=== PATIENT | male | born 1950 | race Hispanic/Latino ===

== ENCOUNTER 2023-08-31 06:13 | Day surgery (SDC) | payer OTHER ==
[2023-08-29 14:09] LABS: BASOPHILS # (AUTO) 0.09 K/uL (0.00-0.20); EOSINOPHILS # (AUTO) 1.09 K/uL (0.00-0.70); HEMATOCRIT 39.4 % (42-54); IMMATURE GRANULOCYTE ABSOLUTE 0.03 K/uL (0-1); LYMPHOCYTES # (AUTO) 1.7 K/uL (1.0-4.8); LYMPHOCYTES % (AUTO) 18.5 % (21.0-51.0); MEAN CORPUSCULAR HEMOGLOBIN 27.6 pg (27.0-33.0); MEAN CORPUSCULAR HGB CONC 32.7 g/dL (32.0-36.0); MEAN CORPUSCULAR VOLUME 84.2 fL (79-99); MONOCYTES # (AUTO) 0.8 K/uL (0.1-1.0); MONOCYTES % (AUTO) 8.6 % (3.0-13.0); NEUTROPHILS # (AUTO) 5.4 K/uL (1.8-7.7); NEUTROPHILS % (AUTO) 59.6 % (40.0-77.0); PLATELET COUNT (AUTO) 263 K/uL (130-400); RED BLOOD CELL COUNT(AUTO) 4.68 MIL/uL (4.50-6.20); RED CELL DISTRIBUTION WIDTH 13.2 % (11.0-15.5); WHITE BLOOD COUNT (AUTO) 9.1 K/uL (4.8-10.8)
[2023-08-29 14:19] VITALS: BP 98/61; PULSE 95; RESP 18
[2023-08-29 14:21] LABS: INR 0.97 (0.85-1.15); PROTHROMBIN TIME 11.5 SEC (9.6-11.6)
[2023-08-29 14:22] LABS: CREATININE 1.7 mg/dL (0.5-1.3); PARTIAL THROMBOPLASTIN TIME 31.3 SEC (26.3-35.5); POTASSIUM 4.6 mmol/L (3.5-5.1)
[2023-08-29 14:31] LABS: B-TYPE NATRIURETIC PEPTIDE 217 pg/mL (0-100)
[2023-08-31] VITALS (9 sets, daily range): BP systolic 97–135; BP diastolic 42–83; PULSE 57–74; RESP 16–18
[~2023-08-31] VITALS: Ht 165.1 cm; Wt 64.3 kg
[~2023-08-31 06:13] MED LIST: AMIO200T68 PO; APIX5TAB PO; ATOR40TA71 PO; CLOP75TA32 PO; METO25TA6 PO
[2023-08-31] MEDS: 0.9%NACL 1000ML 1,000 ML IV ONE (07:30)
[2023-08-31] MEDS ORDERED: LIDOCAINE HCL 2% VISCOUS 15 ML UDCUP ONE (08:22)
[2023-08-31] MEDS ORDERED: PROPOFOL 10 MG/ML 20ML VIAL IV ONE (09:12)
== END 2023-08-31 10:55 | disposition home or self-care (01) ==
LOC: DAH 06:13
PROVIDERS: ATTEND Internal Medicine Interventional Cardiology
DX: I48.11 Longstanding persistent atrial fibrillation (principal); I34.0 Nonrheumatic mitral (valve) insufficiency; I45.10 Unspecified right bundle-branch block; G60.8 Other hereditary and idiopathic neuropathies; I10 Essential (primary) hypertension; I25.2 Old myocardial infarction; R00.0 Tachycardia, unspecified; I65.23 Occlusion and stenosis of bilateral carotid arteries; I73.9 Peripheral vascular disease, unspecified; E66.3 Overweight; Z79.899 Other long term (current) drug therapy; Z98.890 Other specified postprocedural states; Z68.25 Body mass index [BMI] 25.0-25.9, adult
CPT/HCPCS: 71045; 80048; 83880; 85025; 85610; 85730; 36415; 93005 ×2; 92960; 93312; 93325; J7030; J2704; A4620; A4215; A4657; A4222; A4221; A4663; A4216; A4606; A4223 ×3; J3490